=== PATIENT | female | born 1945 | race Caucasian/White ===

== ENCOUNTER → 2023-12-27 09:11 | Outpatient (REF) | payer MEDICARE, OTHER, SELFPAY ==
[2023-12-27 09:50] LABS: % Basophils 0.4 % (0-2); % Eosinophils 1.6 % (0-6); % Immature Granulocytes 0.2 % (0-0.5); % Lymphocytes 20.1 % (20.5-51.1); % Monocytes 9.6 % (1.7-9.3); % Neutrophils 68.1 % (42.2-75.2); Absolute Eosinophils 0.1 10^3/uL (0-0.7); Absolute Lymphocytes 0.9 10^3/uL (1.2-3.4); Absolute Monocytes 0.4 10^3/uL (0.1-0.6); Hematocrit 44.1 % (37.0-47.0); Hemoglobin 14.8 g/dL (12.0-16.0); Mean Corp Hgb Conc. 33.6 g/dL (33.0-37.0); Mean Corpuscular Hgb 30.3 pg (27.0-31.0); Mean Corpuscular Volume 90.4 fL (81.0-99.0); Mean Platelet Volume 9.4 fL (7.4-10.4); Nucleated Red Blood Cells % 0 %; Platelet Count 220 10^3/uL (130-400); Red Blood Cell Count 4.88 10^6/uL (4.20-5.40); Red Cell Dist. Width 13.3 % (11.5-14.5); White Blood Cell Count 4.5 10^3/uL (4.8-10.8)
[2023-12-27 10:04] LABS: ALT (SGPT) 27 U/L (0-35); AST (SGOT) 28 U/L (14-36); Albumin 4.3 g/dl (3.5-5.0); Alkaline Phosphatase 70 U/L (38-126); Direct Bilirubin 0.4 mg/dl (0.0-0.4); Total Bilirubin 0.9 mg/dl (0.2-1.3); Total Protein 6.9 g/dl (6.3-8.2)
[2023-12-29 02:49] LABS: CA 27-29 18.8 U/mL (<=39.0)
== END ==
LOC: REG 09:11
PROVIDERS: ATTENDING PHYSICIAN Internal Medicine Hematology & Oncology
DX: C50.412 Malignant neoplasm of upper-outer quadrant of left female breast (principal)
CPT/HCPCS: 36415; 80076; 85025; 86300

== ENCOUNTER 2024-01-21 09:56 | Emergency (ER) | payer MEDICARE, OTHER, SELFPAY ==
[2024-01-21 09:56] VITALS: BMI 28.7
[2024-01-21 10:12] VITALS: BP 180/100
[2024-01-21 10:47] VITALS: BP 161/106
--- NOTE | 2024-01-21 10:47 | ED.GENMED ---
History of Present Illness
<Jarrett Lynn PA-C - Last Filed: 01/21/24 17:59>
General
Chief Complaint: Musculo-Skeletal Complaint
Time Seen by Provider: 01/21/24 10:31
Travel History
Have you had any contact with someone who has COVID-19?: No
Do you have any symptoms of coronavirus? Fever > 100 degrees, chills, cough, shortness of breath, sore throat, loss of taste or smell, muscle aches, or headache?: No
History of Present Illness
History of Present Illness:
78-year-old female with history of chronic neck pain, Hypertension and hyperlipidemia presents to the emergency department for evaluation of bilateral neck discomfort beginning yesterday. States the neck feels very stiff. Does have known cervical
arthritis but feels it is never been as severe as her current pain is. Pain began last night and is worsened this morning. She has some lightheadedness whenever she attempts to look up has quite limited range of motion laterally. Denies any upper
extremity weakness or numbness. Denies any headaches or vision changes. Denies any recent neck trauma or therapy/chiropractic treatments. No chest pain or shortness of breath.
Past History
<Jarrett Lynn PA-C - Last Filed: 01/21/24 17:59>
Past History
ED Past Medical History: Cancer, HTN, Hypercholesterolemia and Other (depression)
Social History
Tobacco: Non-smoker
Alcohol: Occasional
Drug: None
Personal:
Living: with family
Employment: Retired
Family History
Family History: Other (Noncontributory)
Review of Systems
<Jarrett Lynn PA-C - Last Filed: 01/21/24 17:59>
Review of Systems
Allergies reviewed?: Yes
All Other Systems: ROS reviewed and negative except as documented in HPI and ROS
Phy Exam
<Jarrett Lynn PA-C - Last Filed: 01/21/24 17:59>
Physical Exam
Physical Exam:
GEN: Well appearing, NAD, WDWN
HEENT: Oral mucosa moist, no scleral icterus
Cardiac: Regular rate
Lung: No respiratory distress, no tachypnea
MSK: No gross deformity or injuries. Grossly nontender to the paracervical musculature as well as the midline cervical spine. Neck flexion is within normal limits however extension of bilateral rotation severely limited due to pain
Skin: Good color, no pallor or jaundice, no rashes
Neuro: AO x3, cranial nerves II through XII grossly intact, moves all extremities freely, bilateral upper extremity strength and sensation is fully intact in all jeffery and symmetric
Psych: Calm, cooperative
Course
<Jarrett Lynn PA-C - Last Filed: 01/21/24 17:59>
Orders/Labs/Results
Orders:
Orders
01/21/24 10:45
Acetaminophen [Tylenol] 650 mg PO NOW STA
Ketorolac [Toradol] 15 mg IV NOW STA
diazePAM [Valium Injection] 1 mg IV NOW STA
01/21/24 10:54
Basic Metabolic Panel Urgent
Complete Blood Count/No Diff Urgent
01/21/24 11:12
CT Head W/o Iv Contrast Urgent
Comment:
Reason For Exam: Ongoing headache
01/21/24 11:13
CT Cervical Spine W/o Iv Contr Urgent
Comment:
Reason For Exam: mid neck pain
Abnormal Lab Results
01/21/24
10:54
BUN 25 H mg/dl
(7-17)
Glucose 100 H mg/dl
(70-99)
01/21/24 10:54
01/21/24 10:54
Vital Signs
Initial and Last Documented VS:
Initial Vital Signs
Temp Pulse Resp BP Pulse Ox
98.2 F 71 16 180/100 98
01/21/24 10:12 01/21/24 10:12 01/21/24 10:12 01/21/24 10:12 01/21/24 10:12
Last Documented Vital Signs
Temp Pulse Resp BP Pulse Ox
98.2 F 71 16 161/106 98
01/21/24 10:12 01/21/24 10:12 01/21/24 10:12 01/21/24 10:47 01/21/24 10:12
<Scott Emmanuel, DO - Last Filed: 01/21/24 11:22>
Orders/Labs/Results
Orders:
Orders
01/21/24 10:45
Acetaminophen [Tylenol] 650 mg PO NOW STA
Ketorolac [Toradol] 15 mg IV NOW STA
diazePAM [Valium Injection] 1 mg IV NOW STA
01/21/24 10:54
Basic Metabolic Panel Urgent
Complete Blood Count/No Diff Urgent
01/21/24 11:12
CT Head W/o Iv Contrast Urgent
Comment:
Reason For Exam: Ongoing headache
01/21/24 11:13
CT Cervical Spine W/o Iv Contr Urgent
Comment:
Reason For Exam: mid neck pain
Abnormal Lab Results
01/21/24
10:54
BUN 25 H mg/dl
(7-17)
Glucose 100 H mg/dl
(70-99)
01/21/24 10:54
01/21/24 10:54
Vital Signs
Initial and Last Documented VS:
Initial Vital Signs
Temp Pulse Resp BP Pulse Ox
98.2 F 71 16 180/100 98
01/21/24 10:12 01/21/24 10:12 01/21/24 10:12 01/21/24 10:12 01/21/24 10:12
Last Documented Vital Signs
Temp Pulse Resp BP Pulse Ox
98.2 F 71 16 161/106 98
01/21/24 10:12 01/21/24 10:12 01/21/24 10:12 01/21/24 10:47 01/21/24 10:12
<Jarrett Lynn PA-C - Last Filed: 01/21/24 17:59>
MDM/Problems Addressed
MDM/Problems Addressed:
78-year-old female presents with acute on chronic neck pain. No traumatic injuries. She has no vertigo or neurologic symptoms concerning for vertebral artery dissection. After evaluation by attending physician Dr. Emmanuel CT of the head and
C-spine were ordered to evaluate for other occult etiology such as intracranial mass or pathologic fractures, these images were unremarkable. Discussed supportive care, patient recommended to attend outpatient physical therapy that has been
previously referred for
<Jarrett Lynn PA-C - Last Filed: 01/21/24 17:59>
*Critical Care Note
Total Time (30-74mins, 75-104mins- exclusive of procedures): Not Applicable
ED Attending Note
<Jarrett Lynn PA-C - Last Filed: 01/21/24 17:59>
-
Portions of this chart may have been created with voice recognition software.� Occasional wrong word or��sound alike� substitutions may have occurred due to the inherent limitations of voice recognition software.
<Scott Emmanuel DO - Last Filed: 01/21/24 11:22>
ED Attending Note
Patient seen and examined by attending physician: Yes
I performed the substantive portion of visit, reviewed & personally made and approve the management plan that is documented in note by myself or PUSHPA.: Yes
ED Attending Note:
I have seen and evaluated the patient with a [id number] encounter. I have spoken to the advance practicer provider and involved in the medical history, the physical exam, medical decision making.
Evaluation and management service: agree unless noted differently below.
Results interpretation: agree unless noted differently below.
Focused HPI: 78-year-old female presenting with neck pain for the past several days. She does have a history of arthritis but states that has never been this bad before. She localizes the pain to the back of her neck and the sides of her neck.
She denies fevers
Physical exam: Sitting in bed comfortably. Pain localized to palpation of sternocleidomastoids and trapezius. No significant midline tenderness. Range of motion limited due to pain but no meningeal sign
Medical Decision Making: Will obtain CT of head and neck. Patient is concerned about possible brain cancer given her prior history of cancer. We discussed the CT head is not the test of choice but will rule out large cancers. Patient given Valium
for spasm. She does have PT prescription that she has not yet filled. We discussed continuing with physical therapy and discussed MRI if symptoms persist regardless of PT
Discharge Plan
Departure
Patient Disposition: Home (Routine Discharge)
Date of Disposition: 01/21/24
Time of Disposition: 12:21
Patient with high blood pressure during this ER visit?: No
Discharge Problem:
Cervical arthritis
Instructions: Generalized Neck Pain (DC)
Prescriptions:
New
diclofenac sodium 75 mg tablet,delayed release (DR/EC)
75 mg PO BID 10 Days Qty: 20 0RF
No Action
pantoprazole 40 MG tablet,delayed release (DR/EC)
40 mg PO DAILY
montelukast 10 MG tablet
10 mg PO DAILY
losartan 50 MG tablet
50 mg PO HS
acetaminophen [Tylenol Extra Strength] 500 MG tablet
2 tab PO PRN PRN (Reason: pain)
temazepam [Restoril] 30 MG capsule
30 mg PO HS
atorvastatin 10 MG tablet
10 mg PO .Q24H
sucralfate [Carafate] 1 GM tablet
1 gm PO DAILY PRN (Reason: reflux)
alprazolam 0.5 MG tablet
0.5 mg PO PRN PRN (Reason: anxiety)
escitalopram oxalate 5 MG tablet
5 mg PO DAILY
Herceptin:
IV [id number]
Novotears
1 drp BOTH EYES QID
Refresh Eye Drops (Pf):
1 drp BOTH EYES PRN (Reason: irratation)
Refresh Liquigel
1 - 2 drops BOTH EYES PRN (Reason: irratation)
Saline Nasal [place]
1 spray intranasal PRN PRN (Reason: allergies)
polyethylene glycol 3350 17 GRAMS powder in packet
17 grams PO DAILY PRN (Reason: constipation)
hydrocodone-acetaminophen [Rosenhayn] 1 EACH tablet
1 ea PO Q4HPRN PRN (Reason: pain>4/10) Qty: 20 0RF
Rx Instructions:
take with daily stool softener
Referrals:
Robin Ventura, [Family Provider] -
Activity Restrictions/Additional Instructions:
Please consider physical therapy
Take the anti inflammatories twice daily for 7-10 days as needed for pain. DO NOT TAKE IBUPROFEN OR ASPIRIN WHILE ON THIS MEDICATION
See your primary care doctor in 1-2 weeks for follow up
Interventions
Interventions:
*Risk Screen - Suicide Last Done: 01/21/24 12:49
*General Assessment Last Done: 01/21/24 10:41
*Neglect/Abuse Screening Last Done: 01/21/24 12:49
ED- Fall Risk Assessment Last Done: 01/21/24 12:49
*ED COVID-19 Vaccine History Last Done: 01/21/24 10:12
*Nursing Disposition Last Done: 01/21/24 12:49
ED-Musculoskeletal Assessment Last Done: 01/21/24 10:37
Discharge Date and Time
Discharge Date/Time: 01/21/24 12:50
[2024-01-21] MEDS: TORADOL 15 MG IV (11:01)
[2024-01-21] MEDS: TYLENOL 650 MG PO (11:02)
[2024-01-21] MEDS: VALIUM INJECTION 1 MG IV (11:02)
[2024-01-21 11:07] LABS: Hematocrit 39.4 % (37.0-47.0); Hemoglobin 13.7 g/dL (12.0-16.0); Mean Corp Hgb Conc. 34.8 g/dL (33.0-37.0); Mean Corpuscular Volume 86.2 fL (81.0-99.0); Mean Platelet Volume 9.1 fL (7.4-10.4); Platelet Count 203 10^3/uL (130-400); Red Blood Cell Count 4.57 10^6/uL (4.20-5.40); Red Cell Dist. Width 13.2 % (11.5-14.5); White Blood Cell Count 6.6 10^3/uL (4.8-10.8)
[2024-01-21 11:20] LABS: Blood Urea Nitrogen 25 mg/dl (7-17); Calcium 10.1 mg/dl (8.4-10.2); Carbon Dioxide 27 mmol/L (22-30); Chloride 104 mmol/L (98-107); Estimated Creatinine Clearance 60 ml/min; Glucose 100 mg/dl (70-99); Potassium 4.2 mmol/L (3.5-5.1); Sodium 137 mmol/L (135-145); eGFR > 60.00
== END 2024-01-21 12:50 | disposition home or self-care (01) ==
LOC: EMR 09:56
PROVIDERS: Physician Assistant; EMERGENCY PHYSICIAN Student in an Organized Health Care Education/Training Program; FAMILY PHYSICIAN Family Medicine
DX: M50.30 Other cervical disc degeneration, unspecified cervical region (principal)
CPT/HCPCS: 99284; 96374; 96375; 70450; 72125; 80048; 85027

== ENCOUNTER → 2024-04-08 09:51 | Outpatient (REF) | payer MEDICARE, OTHER, SELFPAY ==
[2024-04-08 10:18] LABS: % Basophils 0.6 % (0-2); % Eosinophils 0.8 % (0-6); % Immature Granulocytes 0.4 % (0-0.5); % Lymphocytes 23.9 % (20.5-51.1); % Monocytes 8.9 % (1.7-9.3); % Neutrophils 65.4 % (42.2-75.2); Absolute Lymphocytes 1.1 10^3/uL (1.2-3.4); Absolute Monocytes 0.4 10^3/uL (0.1-0.6); Absolute Neutrophils 3.1 10^3/uL (1.4-6.5); Hematocrit 40.3 % (37.0-47.0); Hemoglobin 13.7 g/dL (12.0-16.0); Mean Corpuscular Hgb 29.8 pg (27.0-31.0); Mean Corpuscular Volume 87.6 fL (81.0-99.0); Mean Platelet Volume 9.4 fL (7.4-10.4); Nucleated Red Blood Cells % 0 %; Platelet Count 218 10^3/uL (130-400); Red Cell Dist. Width 12.6 % (11.5-14.5); White Blood Cell Count 4.7 10^3/uL (4.8-10.8)
[2024-04-08 11:04] LABS: ALT (SGPT) 25 U/L (0-35); AST (SGOT) 28 U/L (14-36); Albumin 4.4 g/dl (3.5-5.0); Alkaline Phosphatase 79 U/L (38-126); Blood Urea Nitrogen 20 mg/dl (7-17); Calcium 10.5 mg/dl (8.4-10.2); Carbon Dioxide 26 mmol/L (22-30); Chloride 101 mmol/L (98-107); Glucose 104 mg/dl (70-99); Potassium 4.4 mmol/L (3.5-5.1); Sodium 136 mmol/L (135-145); Total Bilirubin 0.8 mg/dl (0.2-1.3); Total Protein 6.9 g/dl (6.3-8.2); eGFR > 60.00
== END ==
LOC: RAD 09:51
PROVIDERS: ATTENDING PHYSICIAN Internal Medicine Gastroenterology; FAMILY PHYSICIAN Family Medicine
DX: R94.5 Abnormal results of liver function studies (principal)
CPT/HCPCS: 36415; 76700; 80053; 85025

== ENCOUNTER → 2024-07-08 10:12 | Outpatient (REF) | payer MEDICARE, OTHER, SELFPAY ==
[2024-07-08 10:49] LABS: % Basophils 0.6 % (0-2); % Eosinophils 0.6 % (0-6); % Immature Granulocytes 0.4 % (0-0.5); % Lymphocytes 15.2 % (20.5-51.1); % Monocytes 7.2 % (1.7-9.3); Absolute Lymphocytes 0.8 10^3/uL (1.2-3.4); Absolute Monocytes 0.4 10^3/uL (0.1-0.6); Absolute Neutrophils 3.8 10^3/uL (1.4-6.5); Hematocrit 39.7 % (37.0-47.0); Hemoglobin 13.5 g/dL (12.0-16.0); Mean Corpuscular Hgb 29.5 pg (27.0-31.0); Mean Corpuscular Volume 86.9 fL (81.0-99.0); Mean Platelet Volume 9.3 fL (7.4-10.4); Nucleated Red Blood Cells % 0 %; Platelet Count 200 10^3/uL (130-400); Red Blood Cell Count 4.57 10^6/uL (4.20-5.40); Red Cell Dist. Width 13.2 % (11.5-14.5)
[2024-07-08 11:28] LABS: ALT (SGPT) 23 U/L (0-35); AST (SGOT) 29 U/L (14-36); Albumin 4.4 g/dl (3.5-5.0); Alkaline Phosphatase 74 U/L (38-126); Blood Urea Nitrogen 19 mg/dl (7-17); Calcium 10.5 mg/dl (8.4-10.2); Carbon Dioxide 28 mmol/L (22-30); Chloride 100 mmol/L (98-107); Glucose 98 mg/dl (70-99); Potassium 4.7 mmol/L (3.5-5.1); Sodium 137 mmol/L (135-145); Total Bilirubin 0.7 mg/dl (0.2-1.3); Total Protein 6.5 g/dl (6.3-8.2); eGFR > 60.00
[2024-07-11 00:23] LABS: CA 27-29 20.9 U/mL (<=39.0)
[2024-07-11 10:55] LABS: Beta-2-Microglobulin 2.1 mg/L (<=3.0)
== END ==
LOC: REG 10:12
PROVIDERS: ATTENDING PHYSICIAN Internal Medicine Hematology & Oncology; FAMILY PHYSICIAN Family Medicine
DX: C50.412 Malignant neoplasm of upper-outer quadrant of left female breast (principal)
CPT/HCPCS: 36415; 80053; 82232; 82784; 83521; 84155; 84165; 85025; 86300; 86334

== ENCOUNTER → 2024-11-28 10:51 | Outpatient (REF) | payer MEDICARE, OTHER, SELFPAY | LOC: MRI 3T 10:51 | PROVIDERS: ATTENDING PHYSICIAN Surgery; FAMILY PHYSICIAN Family Medicine | DX: C50.412 Malignant neoplasm of upper-outer quadrant of left female breast (principal); N64.4 Mastodynia; Z98.82 Breast implant status | CPT/HCPCS: 77049; A9585 ==

== ENCOUNTER → 2024-12-03 11:17 | Outpatient (REF) | payer MEDICARE, OTHER, SELFPAY | LOC: RAD 11:17 | PROVIDERS: ATTENDING PHYSICIAN Internal Medicine Hematology & Oncology; FAMILY PHYSICIAN Family Medicine; OTHER PHYSICIAN Dermatology; REFERRING PHYSICIAN Student in an Organized Health Care Education/Training Program | DX: C50.412 Malignant neoplasm of upper-outer quadrant of left female breast (principal); Z78.0 Asymptomatic menopausal state | CPT/HCPCS: 77080 ==

== ENCOUNTER → 2024-12-04 10:40 | Outpatient (REF) | payer MEDICARE, OTHER, SELFPAY ==
[2024-12-04 12:00] LABS: % Basophils 0.5 % (0-2); % Eosinophils 1.4 % (0-6); % Immature Granulocytes 0.2 % (0-0.5); % Lymphocytes 17.6 % (20.5-51.1); % Neutrophils 72.3 % (42.2-75.2); Absolute Eosinophils 0.1 10^3/uL (0-0.7); Absolute Monocytes 0.5 10^3/uL (0.1-0.6); Absolute Neutrophils 4.1 10^3/uL (1.4-6.5); Hematocrit 38.9 % (37.0-47.0); Hemoglobin 13.6 g/dL (12.0-16.0); Mean Corpuscular Hgb 29.8 pg (27.0-31.0); Mean Corpuscular Volume 85.3 fL (81.0-99.0); Mean Platelet Volume 9.1 fL (7.4-10.4); Nucleated Red Blood Cells % 0 %; Platelet Count 227 10^3/uL (130-400); Red Blood Cell Count 4.56 10^6/uL (4.20-5.40); Red Cell Dist. Width 12.9 % (11.5-14.5); White Blood Cell Count 5.6 10^3/uL (4.8-10.8)
[2024-12-04 12:13] LABS: Erythrocyte Sed Rate 15 mm/hour (0-20)
[2024-12-04 13:03] LABS: C-Reactive Protein < 5.00 mg/L (0.0-10.00)
[2024-12-04 13:04] LABS: ALT (SGPT) 26 U/L (0-35); AST (SGOT) 28 U/L (14-36); Albumin 4.6 g/dl (3.5-5.0); Alkaline Phosphatase 93 U/L (38-126); Blood Urea Nitrogen 24 mg/dl (7-17); Calcium 10.5 mg/dl (8.4-10.2); Carbon Dioxide 25 mmol/L (22-30); Chloride 100 mmol/L (98-107); Glucose 96 mg/dl (70-99); Potassium 4.4 mmol/L (3.5-5.1); Sodium 137 mmol/L (135-145); Total Protein 7.3 g/dl (6.3-8.2); eGFR > 60.00
[2024-12-04 13:47] LABS: Rheumatoid Agglutinin Positive (<10 IU)
[2024-12-04 14:26] LABS: Vitamin D, 25-OH*** 48.6 ng/mL (30-80)
[2024-12-04 14:31] LABS: Rheumatoid Agg. Semi-quant 256 IU
[2024-12-05 19:12] LABS: Angiotensin-1-converting Enzym 52 U/L (16-85)
[2024-12-05 23:32] LABS: CCP Antibody IgG/IgA 3 Units (0-19)
[2024-12-06 09:51] LABS: Myeloperoxidase Antibody 0 AU/mL (0-19); Serine Protease-3, IgG 0 AU/mL (0-19)
[2024-12-06 10:37] LABS: HLA-B27 Negative (Negative)
== END ==
LOC: REG 10:40
PROVIDERS: ATTENDING PHYSICIAN Student in an Organized Health Care Education/Training Program; FAMILY PHYSICIAN Family Medicine
DX: H40.9 Unspecified glaucoma (principal); J32.9 Chronic sinusitis, unspecified; K22.70 Barrett's esophagus without dysplasia; K57.90 Diverticulosis of intestine, part unspecified, without perforation or abscess without bleeding; L40.9 Psoriasis, unspecified; M25.50 Pain in unspecified joint; M53.3 Sacrococcygeal disorders, not elsewhere classified; R91.8 Other nonspecific abnormal finding of lung field
CPT/HCPCS: 36415; 72202; 73120; 80053; 82164; 82306; 83516; 85025; 85652; 86140; 86200; 86430; 86431; 86812

== ENCOUNTER → 2024-12-25 11:14 | Outpatient (REF) | payer MEDICARE, OTHER, SELFPAY | LOC: RAD 11:14 | PROVIDERS: ATTENDING PHYSICIAN Internal Medicine Endocrinology, Diabetes & Metabolism; FAMILY PHYSICIAN Family Medicine | DX: E34.9 Endocrine disorder, unspecified (principal) | CPT/HCPCS: 76536 ==

== ENCOUNTER → 2025-02-19 17:28 | Outpatient (REF) | payer MEDICARE, OTHER, SELFPAY ==
[2025-02-19 17:59] LABS: % Basophils 0.4 % (0-2); % Eosinophils 1.6 % (0-6); % Immature Granulocytes 0.4 % (0-0.5); % Monocytes 9.1 % (1.7-9.3); % Neutrophils 66.5 % (42.2-75.2); Absolute Eosinophils 0.1 10^3/uL (0-0.7); Absolute Lymphocytes 1.1 10^3/uL (1.2-3.4); Absolute Monocytes 0.5 10^3/uL (0.1-0.6); Absolute Neutrophils 3.4 10^3/uL (1.4-6.5); Hematocrit 40.9 % (37.0-47.0); Hemoglobin 13.5 g/dL (12.0-16.0); Mean Corpuscular Hgb 28.8 pg (27.0-31.0); Mean Corpuscular Volume 87.4 fL (81.0-99.0); Mean Platelet Volume 8.9 fL (7.4-10.4); Nucleated Red Blood Cells % 0 %; Platelet Count 189 10^3/uL (130-400); Red Blood Cell Count 4.68 10^6/uL (4.20-5.40); Red Cell Dist. Width 12.9 % (11.5-14.5); White Blood Cell Count 5.1 10^3/uL (4.8-10.8)
[2025-02-19 18:11] LABS: Rheumatoid Agglutinin Less Than 10 IU (<10 IU)
[2025-02-19 18:12] LABS: Erythrocyte Sed Rate 10 mm/hour (0-20)
[2025-02-19 18:23] LABS: ALT (SGPT) 34 U/L (0-35); AST (SGOT) 30 U/L (14-36); Albumin 4.3 g/dl (3.5-5.0); Alkaline Phosphatase 88 U/L (38-126); Blood Urea Nitrogen 26 mg/dl (7-17); Calcium 10.7 mg/dl (8.4-10.2); Carbon Dioxide 28 mmol/L (22-30); Chloride 104 mmol/L (98-107); Glucose 93 mg/dl (70-99); Potassium 4.3 mmol/L (3.5-5.1); Sodium 141 mmol/L (135-145); Total Bilirubin 0.9 mg/dl (0.2-1.3); Total Protein 6.7 g/dl (6.3-8.2); eGFR > 60.00
[2025-02-22 01:37] LABS: CCP Antibody IgG/IgA 3 Units (0-19)
== END ==
LOC: REG 17:28
PROVIDERS: ATTENDING PHYSICIAN Student in an Organized Health Care Education/Training Program; FAMILY PHYSICIAN Family Medicine
DX: H40.9 Unspecified glaucoma (principal); J32.9 Chronic sinusitis, unspecified; K22.70 Barrett's esophagus without dysplasia; K57.90 Diverticulosis of intestine, part unspecified, without perforation or abscess without bleeding; L40.9 Psoriasis, unspecified; M05.9 Rheumatoid arthritis with rheumatoid factor, unspecified; M25.50 Pain in unspecified joint; M53.3 Sacrococcygeal disorders, not elsewhere classified; M54.2 Cervicalgia; R91.8 Other nonspecific abnormal finding of lung field; Z91.89 Other specified personal risk factors, not elsewhere classified
CPT/HCPCS: 36415; 72052; 80053; 85025; 85652; 86140; 86200; 86430

== ENCOUNTER → 2025-04-01 08:15 | Outpatient (REF) | payer MEDICARE, OTHER, SELFPAY | LOC: PAVMRI 08:15 | PROVIDERS: ATTENDING PHYSICIAN Family Medicine | DX: M54.2 Cervicalgia (principal); M50.30 Other cervical disc degeneration, unspecified cervical region; M47.22 Other spondylosis with radiculopathy, cervical region | CPT/HCPCS: 72141 ==

== ENCOUNTER → 2025-04-17 12:55 | Outpatient (REF) | payer MEDICARE, OTHER, SELFPAY | LOC: MRI 12:55 | PROVIDERS: ATTENDING PHYSICIAN Family Medicine | DX: R42 Dizziness and giddiness (principal); Z85.3 Personal history of malignant neoplasm of breast | CPT/HCPCS: 70553 ==

== ENCOUNTER → 2025-07-07 09:19 | Outpatient (REF) | payer MEDICARE, OTHER, SELFPAY | LOC: RAD 09:19 | PROVIDERS: ATTENDING PHYSICIAN Internal Medicine Gastroenterology; FAMILY PHYSICIAN Family Medicine | DX: K82.4 Cholesterolosis of gallbladder (principal) | CPT/HCPCS: 76700 ==

== ENCOUNTER → 2025-07-15 12:56 | Outpatient (REF) | payer MEDICARE, OTHER, SELFPAY | LOC: RCS 12:56 | PROVIDERS: ATTENDING PHYSICIAN Internal Medicine Cardiovascular Disease; FAMILY PHYSICIAN Family Medicine | DX: C50.919 Malignant neoplasm of unspecified site of unspecified female breast (principal); T45.1X5D Adverse effect of antineoplastic and immunosuppressive drugs, subsequent encounter | CPT/HCPCS: 93306; 93356 ==